=== PATIENT | male | born 1995 | race Caucasian/White ===

== ENCOUNTER 2016-07-30 21:56 | Emergency (ER) | payer BC ==
[~2016-07-30] VITALS: Ht 182.9 cm; Wt 90.7 kg
[2016-07-30 23:18] VITALS: BP 149/82
== END 2016-07-31 00:24 | disposition home or self-care (01) ==
LOC: ER 22:02 → EDBD 22:02 → ER 07-31 00:24
DX: F41.9 Anxiety disorder, unspecified (principal); F32.9 Major depressive disorder, single episode, unspecified; F98.8 Other specified behavioral and emotional disorders with onset usually occurring in childhood and adolescence
CPT/HCPCS: 99284; A4606; Z7610